=== PATIENT | female | born 1975 | race Caucasian/White ===

== ENCOUNTER 2018-05-25 14:47 | Emergency (ER) | payer BC ==
[2018-05-25] MEDS: IBUPROFEN 600 MG TAB PO (17:34)
== END 2018-05-25 17:38 | disposition home or self-care (01) ==
LOC: FTE 17:38
DX: R50.9 Fever, unspecified (principal); R40.2412 Glasgow coma scale score 13-15, at arrival to emergency department
CPT/HCPCS: 99283